=== PATIENT | male | born 1975 | race Caucasian/White ===

== ENCOUNTER 2017-08-26 12:24 | Emergency (ER) | payer BC, OTHER ==
[~2017-08-26] VITALS: Ht 182.9 cm; Wt 90.7 kg
[~2017-08-26 12:24] MED LIST: HYDR-79 PO
--- NOTE | 2017-08-26 13:26 | RAD ---
Right knee, 3 views, 08/26/2017: History: Fall, pain There is a comminuted fracture of the proximal tibia. The main fracture line is a longitudinally oriented and involves the articular surface of the lateral tibial plateau. There appears to be mild depression of a portion of the fractured articular surface. No other fracture or dislocation is identified. There is a large knee joint effusion. IMPRESSION: Proximal tibial fracture involving the articular surface of the lateral tibial plateau.
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
[2017-08-26 14:30] VITALS: BP 144/69
[2017-08-26] MEDS ORDERED: KETOROLAC 30 MG/ML VIAL. IV ONE (15:45)
[2017-08-26] MEDS ORDERED: HYDROmorphone PF 1 MG/ML DISP.SYRIN IV ONE (15:45)
[2017-08-26] MEDS ORDERED: IV NORMAL SALINE 1,000ML 1,000 ML IV SCH (15:45)
== END 2017-08-26 15:57 | disposition short-term general hospital (02) ==
LOC: ER 12:24
DX: S82.101A Unspecified fracture of upper end of right tibia, initial encounter for closed fracture (principal); F17.210 Nicotine dependence, cigarettes, uncomplicated; V29.9XXA Motorcycle rider (driver) (passenger) injured in unspecified traffic accident, initial encounter; Y93.55 Activity, bike riding; Y99.8 Other external cause status; Y92.89 Other specified places as the place of occurrence of the external cause
CPT/HCPCS: 29505; 73562; 96361; 96374; 96375; 99285; J1170; J1885; J3010; J7030